=== PATIENT | female | born 1960 | race Caucasian/White ===

== ENCOUNTER → 2016-10-08 | Outpatient (CLI) | payer OTHER ==
[~2016-10-08] MED LIST: ACTOS PO; ALBUTEROL 0.5ML; ALBUTEROL 0.5ML INH; ALBUTEROL MININEB NEB; ALBUTEROL17 GM INH; ALPRAZOLAM ER1 MG PO; ALPRAZOLAM1 MG PO; ALPRAZOLAM2 M2 PO; ALTOPREV40 MG PO; AMBIEN10 MG PO; AMITRIPTYLINE H50 MG PO; ANTARA PO; ASPIRIN EC81 M1 PO; ASPIRIN81 M2 PO; ASPIRIN81 MG PO; ASPIRINEC PO; ATARAX PO; AVALIDE PO; AVANDAMET 2 MG/1 TAB PO; AVANDAMET 4 MG/1 TA1 PO; AVANDAMET1 TAB; B COMPLEX1 CA1 PO; BENAZEPRIL HCL10 MG PO; BENTYL20 M1 PO; BENTYL20 MG PO; BUPROPION HCL150 MG PO; BYETTA10 MCG/0.0 INJ; BYSTOLIC10 MG PO; CARDIZEM60 M1 PO; CARDIZEM60 MG PO; CELEXA PO; CELEXA20 MG PO; CITALOPRAM HBR40 MG PO; COLACE PO; COMBIVENT MININEB INH; CORTISONE14 GM; CYPROHEPTADINE H4 MG PO; DEPO-PROVER150 MG/ML INJ; DERMACORT1 GM TOP; DESYREL50 MG PO; DICYCLOMINE HCL20 MG PO; DILTIAZEM ER60 MG PO; DOXEPIN PO; DOXYCYCLINE HY100 M4; ENDOCET 10-3251 TAB PO; FAMOTIDINE PO; FENOGLIDE; FIORICET 50-321 EACH PO; FLEXERIL10 M1 PO; FLEXERIL10 MG PO; FLOMAX0.4 M1 PO; FLUCONAZOLE200 M1 PO; GABAPENTIN300 M2 PO; GABAPENTIN300 MG PO; GLUCOTROL PO; HORIZANT600 MG PO; HUMALOG MI100 UNIT/2 SQ; HUMALOG100 U/M2 SQ; HUMALOG100 U/M2 SUBQ; HUMALOG100 U/ML; HUMALOG100 U/ML SUBQ; HUMULIN R100 U/ML SUBQ; HUMULIN R500 U/ML SUBQ; HYDROCODON-ACE1 EAC1 PO; HYDROCODON-ACE1 EAC4 PO; HYDROCODON-ACE1 EAC5 PO; HYDROCODON-ACE1 EAC7 PO; IBUPROFEN800 MG PO; IMITREX PO; INDERAL LA PO; INVOKANA100 MG PO; INVOKANA300 MG PO; JANUMET 50-501 UDTAB PO; KCL PO; KEFLEX500 MG PO; KEPPRA1000 MG PO; KEPPRA500 MG PO; KEPPRA750 MG PO; LANTUS SOLOSTAR3 ML SQ; LANTUS100 U/ML; LANTUS100 U/ML INJ; LANTUS100 U/ML SUBQ; LANTUS100 UNITS/ IJ; LASIX20 MG PO; LEVAQUIN750 MG PO; LEVEMIR100 U/ML; LEVEMIR100 U/ML SUBQ; LEVETIRACETAM1000 MG PO; LIDOCAINE 4% K1 EACH TOP; LIDOCAINE CREAM; LIDOCAINE HCL5 ML TOP; LIDOCAINE PATCH; LIDOCAINE TOP; LIDODERM30 EA TOP; LIPITOR40 MG PO; LISINOPRIL10 MG PO; LOPRESSOR PO; LORTAB 7.5-5001 TAB PO; LOVASTATIN20 M1 PO; LOVASTATIN20 MG PO; LOVAZA1 G PO; LYRICA PO; LYRICA100 MG PO; LYRICA200 MG; LYRICA200 MG PO; MEDROL PO; METOPROLOL SUCC50 MG PO; MEVACOR PO; MEVACOR10 MG PO; MIGRAINE; MORPHINE SULFAT10 M1 PO; NEURONTIN300 MG PO; NEURONTIN800 MG PO; NILSTAT PO; NILSTAT1 ML PO; NORCO 10-325 TA1 TAB PO; NOVOLOG100 U/M1 SQ; NOVOLOG100 U/M2 SQ; OXCARBAZEPINE300 MG PO; PEPTO-BISMOL262 M1 PO; PERCOCET 10/31 UDTA1 PO; PERCOCET 10/3251 TAB PO; PERCOCET PO; PERCOCET10 PO; PERCOCET7.5 PO; PHENERGAN PO; PHENERGAN25 M1 PO; PHENTERMINE H37.5 M1 PO; PHENTERMINE PO; POTASSIUM CHLOR8 MEQ PO; PREDNISONE PO; PREDNISONE10 MG/DOSE PO; PRILOSEC PO; PRILOSEC20 MG PO; PROMETHAZINE HC25 MG PO; PROVENTIL17 GM IH; REGLAN PO; REQUIP; REQUIP PO; REQUIP0.25 MG DOB; REQUIP2 MG PO; REQUIP3 MG PO; REQUIP4 MG PO; ROPINIROLE HCL3 MG PO; ROPINIROLE HCL4 MG PO; ROPINIROLE PO; SPIRONOLAC1 TAB 25/2 PO; STARLIX PO; SUPER B COMPLEX1 CAP PO; SYMBICORT 16010.2 GM INH; SYMBICORT INH; SYMLIN SUBQ; SYNTHROID PO; TEMOVATE 0.05%15 GM EXT; TOPAMAX25 MG PO; TOPROL XL 50 MG50 MG PO; TRADJENTA5 MG PO; TRAMADOL HCL50 M1 PO; TRICOR PO; TUSSI-ORGANIDI473 M2 PO; U 500; VICODIN PO; VITAMIN D32000 UNIT PO; VOTRIENT200 MG PO; WELCHOL625 MG PO; XANAX1 MG PO; XANAX2 MG PO; ZANTAC150 M1 PO; ZESTRIL5 MG PO; ZOFRAN PO; ZOLOFT PO; ZOLPIDEM TARTRA10 M1 PO; [UNRECOGNIZED DRUG - OTHER]; [UNRECOGNIZED DRUG - OTHER] TOP
--- NOTE | ~2016-10-08 | EKG ---
PATIENT: ELKE HENLEY UNIT #: [id number] Ventricular Rate: 68 BPM Atrial Rate: 68 BPM P-R Interval: 158 ms QRS Duration: 96 ms Q-T Interval: 394 ms QTC Calculation(Bezet): 418 ms P [place]: 27 degrees Calculated R [place]: 39 degrees Calculated T [place]: 44 degrees Diagnosis Line: Normal sinus rhythm Diagnosis Line: Normal ECG Diagnosis Line: When compared with ECG of 09-JUN-2016 07:54, Diagnosis Line: QT has shortened Diagnosis Line: Confirmed by BENNY GARDINER MD ([id number]) on 10/09/2016 Diagnosis Line: 9:36:40 AM INTERPRETING MD: ABDIFATAH BRITO
--- NOTE | ~2016-10-08 | CR63 ---
[facility] A Service of [facility] & [facility] RADIOLOGY TEXT RESULTS PATIENT: ELKE HENLEY LOCATION: [facility] : 64 UNIT #: [id number] AGE: [address]: CHELI HAGAN DPM SEX: F ORDER DR: [id number] [facility] [address] [place], [place] [address] [id number] O MR#: [id number] Acc #: [id number] NAME: ELKE HENLEY : 1960 SEX: F STUDY DATE/TIME: 10/08/2016 11:53 UNIT: [facility] ROOM: STUDY DESCRIPTION: CR Chest 2 View Attending Physician: Tequila DasilvaPHaley Ordering Physician: Physician Non-Staff MEDICAL IMAGING REPORT This report is preliminary unless electronic signature is present EXAM Chest x-ray HISTORY Shortness of breath with activity. Preoperative evaluation for foot surgery. COMPARISON 06/09/2016 TECHNIQUE 2 views of the chest were obtained. FINDINGS There is mild cardiomegaly and the aorta is tortuous and ectatic. Both lungs are clear. Vascular markings are normal. No pleural fluid is seen. IMPRESSION Mild cardiomegaly with a tortuous aorta. No change from the previous exam. Dictated by... Umang Queen M.D. THIS IS AN ELECTRONICALLY VERIFIED REPORT Umang Queen M.D. at 10/08/2016 3:45 PM CHERELLE/juan TD: 10/08/2016 13:14 JOB #: [id number] MEDICAL IMAGING REPORT Page 1 of 1 COPY
[2016-10-08 13:01] LABS: HEMATOCRIT 31.7 % (35.0-45.0); HEMOGLOBIN 10.1 gm/dL (12.0-16.0); MEAN CORPUSCULAR HEMOGLOBIN 29.1 PG (28-34); MEAN CORPUSCULAR HGB CONC 31.9 g/dL (30-36); MEAN PLATELET VOLUME 9.4 FL (6.5-11.5); RED BLOOD COUNT 3.48 X10e (3.90-5.30); WHITE BLOOD COUNT 8.3 X10e3 (4.0-10.5)
[2016-10-08 13:16] LABS: ALBUMIN SERUM 3.6 g/dL (3.5-5.0); BILIRUBIN,TOTAL 0.5 mg/dL (0.2-2.0); BUN/CREATININE RATIO 26.92; CALCIUM SERUM 9.2 mg/dL (8.4-10.2); CREATININE SERUM 1.3 mg/dL (0.6-1.4); GLOM FILT RATE Estimated 46.5 mL/min (>60); PROTEIN TOTAL SERUM 7.2 g/dL (6.0-8.3)
[2016-10-08 13:22] LABS: POTASSIUM 5.6 mmol/L (3.5-5.1)
== END | disposition home or self-care (01) ==
LOC: CLAB 11:28
PROVIDERS: Podiatrist Foot & Ankle Surgery
DX: Z01.818 Encounter for other preprocedural examination (principal); I51.7 Cardiomegaly; I77.1 Stricture of artery
CPT/HCPCS: 36415; 71020; 80053; 84132; 85027; 93005

== ENCOUNTER 2016-11-18 07:56 | Emergency (ER) | payer OTHER ==
--- NOTE | ~2016-11-18 | CR106 ---
[facility] A Service of [facility] & [facility] RADIOLOGY TEXT RESULTS PATIENT: ELKE HENLEY LOCATION: [facility] : 64 UNIT #: [id number] AGE: [address]: Mildred Trujillo APRN SEX: F ORDER DR: [id number] [facility] [address] [place], [place] [address] [id number] E MR#: [id number] Acc #: [id number] NAME: ELKE HENLEY : 1960 SEX: F STUDY DATE/TIME: 11/18/2016 7:48 UNIT: [facility] ROOM: STUDY DESCRIPTION: CR Femur 2 Views Lt Attending Physician: Mildred Trujillo A.P.R.N. Ordering Physician: Heath Morelos M.D. Primary Care Physician: Umnag Fisher D.O. MEDICAL IMAGING REPORT This report is preliminary unless electronic signature is present EXAM Left femur INDICATION Sudden onset left leg pain. FINDINGS AP and lateral views of the femur show no evidence of fracture, bone destruction, or periosteal elevation. Adjacent soft tissue structures are normal. IMPRESSION Normal femur. Dictated by... Mingo Ann M.D. THIS IS AN ELECTRONICALLY VERIFIED REPORT Mingo Ann M.D. at 11/18/2016 11:35 AM JAN/whitley TD: 11/18/2016 10:48 JOB #: [id number] MEDICAL IMAGING REPORT Page 1 of 1 COPY
--- NOTE | ~2016-11-18 | US85 ---
[facility] A Service [facility] RADIOLOGY TEXT RESULTS PATIENT: ELKE HENLEY LOCATION: [facility] : 64 UNIT #: [id number] AGE: [address]: Mildred Trujillo APRN SEX: F ORDER DR: [id number] [facility] [address] [place], [place] [address] [id number] E MR#: [id number] Acc #: [id number] NAME: ELKE HENLEY. : 1960 SEX: F STUDY DATE/TIME: 11/18/2016 8:09 UNIT: [facility] ROOM: STUDY DESCRIPTION: [facility] Attending Physician: Mildred Trujillo A.P.R.N. Ordering Physician: Ed Doctor [id number] [facility] Primary Care Physician: Umang Fisher D.O. MEDICAL IMAGING REPORT This report is preliminary unless electronic signature is present EXAM Left lower extremity venous ultrasound HISTORY Left leg pain for one day. COMPARISON 08/04/2015 TECHNIQUE Venous ultrasound examination of the left lower extremity was performed using grayscale, spectral Doppler and color flow Doppler imaging. FINDINGS The examination is negative. There is no evidence of left lower extremity deep venous thrombus from the groin to the lower calf. Visualized greater saphenous vein is also patent. IMPRESSION Negative examination. No evidence of left lower extremity deep venous thrombosis. Dictated by... Mingo Ann M.D. THIS IS AN ELECTRONICALLY VERIFIED REPORT Mingo Ann M.D. at 11/18/2016 11:36 AM Marcial TD: 11/18/2016 10:55 JOB #: [id number] [facility] A Service [facility] RADIOLOGY TEXT RESULTS PATIENT: ELKE HENLEY [place] LOCATION: [facility] : 64 UNIT #: [id number] AGE: [address]: Mildred Trujillo APRN SEX: F ORDER DR: MEDICAL IMAGING REPORT Page 1 of 1 COPY
--- NOTE | ~2016-11-18 | CR252 ---
[facility] A Service of [facility] & [facility] RADIOLOGY TEXT RESULTS PATIENT: ELKE HENLEY LOCATION: [facility] : 64 UNIT #: [id number] AGE: [address]: Mildred Trujillo APRN SEX: F ORDER DR: [id number] [facility] [address] [place], [place] [address] [id number] E MR#: [id number] Acc #: [id number] NAME: ELKE HENLEY : 1960 SEX: F STUDY DATE/TIME: 11/18/2016 7:46 UNIT: [facility] ROOM: STUDY DESCRIPTION: CR Tibia and Fibula 2 Views Lt Attending Physician: Mildred Trujillo A.P.R.N. Ordering Physician: Heath Morelos M.D. Primary Care Physician: Umang Fisher D.O. MEDICAL IMAGING REPORT This report is preliminary unless electronic signature is present EXAM Left tibia and fibula INDICATION Sudden onset of pain in left leg. Stage 4 kidney cancer. FINDINGS AP and lateral views of the left tibia and fibula were obtained. The bones appear normal. There is no fracture visible. IMPRESSION Normal left tibia and fibula. Dictated by... Mingo Ann M.D. THIS IS AN ELECTRONICALLY VERIFIED REPORT Mingo Ann M.D. at 11/18/2016 11:35 AM JAN/whitley TD: 11/18/2016 10:46 JOB #: [id number] MEDICAL IMAGING REPORT Page 1 of 1 COPY
--- NOTE | ~2016-11-18 | CR150 ---
[facility] A Service of [facility] & [facility] RADIOLOGY TEXT RESULTS PATIENT: ELKE HENLEY LOCATION: [facility] : 64 UNIT #: [id number] AGE: [address]: Mildred Trujillo APRN SEX: F ORDER DR: [id number] [facility] [address] [place], [place] [address] [id number] E MR#: [id number] Acc #: [id number] NAME: ELKE HENLEY : 1960 SEX: F STUDY DATE/TIME: 11/18/2016 7:50 UNIT: [facility] ROOM: STUDY DESCRIPTION: CR Hip Min 2 Views Lt Attending Physician: Mildred Trujillo A.P.R.N. Ordering Physician: Ed Doctor [id number] [facility] Primary Care Physician: Umang Fisher D.O. MEDICAL IMAGING REPORT This report is preliminary unless electronic signature is present EXAM Left hip HISTORY Sudden onset left hip pain and left leg pain. The patient has renal cell cancer. FINDINGS An AP view and lateral view of the left hip were obtained. There is no fracture or degenerative change and there is no evidence of metastatic disease. IMPRESSION Normal left hip. Dictated by... Mingo Ann M.D. THIS IS AN ELECTRONICALLY VERIFIED REPORT Mingo Ann M.D. at 11/18/2016 11:36 AM Marcial TD: 11/18/2016 10:56 JOB #: [id number] MEDICAL IMAGING REPORT Page 1 of 1 COPY
== END 2016-11-18 09:32 | disposition home or self-care (01) ==
LOC: CED 07:56
DX: M79.605 Pain in left leg (principal); G89.29 Other chronic pain; E11.9 Type 2 diabetes mellitus without complications; E78.5 Hyperlipidemia, unspecified; I10 Essential (primary) hypertension; Z98.890 Other specified postprocedural states; Z88.1 Allergy status to other antibiotic agents
CPT/HCPCS: 73502; 73552; 73590; 93971; 96372; 99284; J1170